=== PATIENT | male | born 1975 | race Two or more races ===

== ENCOUNTER 2019-05-21 03:53 | Emergency (ER) | payer SELFPAY ==
[~2019-05-21] VITALS: Ht 175.3 cm; Wt 108.6 kg
--- NOTE | 2019-05-21 04:05 | NUR ---
PT. STATING HE WOULD LIKE TO LEAVE; AGREEABLE WITH WAITING FOR DR. SHAI ANTHONY.
[2019-05-21 04:29] LABS: MICROSCOPIC NOT IND
[2019-05-21 04:31] LABS: CULTURE INDICATED? NO
--- NOTE | 2019-05-21 05:03 | NUR ---
PT SEEN BY PA. WAITING FOR LAB TO DRAW BLOOD. [facility] 482 ON ARRIVAL. PT IS + ETOH. VSS. CALL LIGHT IN REACH
[2019-05-21 05:26] LABS: PH, VENOUS 7.317 pH (7.320-7.420)
[2019-05-21 05:28] LABS: O2 FLOW RA L/min
[2019-05-21 05:31] LABS: ALBUMIN 3.7 g/dL (3.4-5.0); ANION GAP 9 mmol/L (5-15); CALCIUM 8.6 mg/dL (8.5-10.1); CHLORIDE 104 mmol/L (98-107); CREATININE 0.96 mg/dL (0.7-1.3)
[2019-05-21 05:34] LABS: BASOPHILS # (AUTO) 0.03 x10^3/uL (0-0.1); BASOPHILS % (AUTO) 0 % (0-1); EOSINOPHILS # (AUTO) 0.08 x10^3/uL (0-0.4); EOSINOPHILS % (AUTO) 1 % (1-7); LYMPHOCYTES # (AUTO) 3.37 x10^3/uL (1-3.4); LYMPHOCYTES % (AUTO) 37 % (22-44); MD NO; MEAN CORPUSCULAR HEMOGLOBIN 29.5 pg (27.5-34.5); MEAN CORPUSCULAR HGB CONC 33.5 g/dL (33.2-36.2); MEAN CORPUSCULAR VOLUME 88.1 fL (81-97); MEAN PLATELET VOLUME 8.3 fL (7.4-10.4); MONOCYTES # (AUTO) 0.37 x10^3/uL (0.2-0.8); MONOCYTES % (AUTO) 4 % (2-9); NEUTROPHILS # (AUTO) 5.19 x10^3/uL (1.8-6.8); NEUTROPHILS % (AUTO) 57 % (42-75); PLATELET COUNT 297 x10^3/uL (130-400); RED CELL DISTRIBUTION WIDTH 13.4 % (9.4-14.8)
[2019-05-21] MEDS ORDERED: SODIUM CHLORIDE 0.9% 1,000ML IVBOLUS ONE (06:00)
[2019-05-21 06:04] VITALS: BP 110/68
--- NOTE | 2019-05-21 06:05 | NUR ---
FLUIDS RUNNING. WILL RECHECK [facility] AFTER BOLUS
[2019-05-21 06:08] LABS: ACETONE, SERUM Negative (Negative)
--- NOTE | 2019-05-21 06:33 | NUR ---
pt pulled out piv. Pt want to leave because he has training at 0700. Pa to talk to pt.
[2019-05-21] MEDS ORDERED: INSULIN SINGLE DOSE, ER SQ-INSULIN ONE (06:37)
--- NOTE | 2019-05-21 06:40 | NUR ---
pt medicated with insulin. Pt urged to wait for discharge papers. pt left prior to recieving discharge papers.
[2019-05-21] MEDS ORDERED: INSULIN REGULAR 100 UNITS/ML, 3ML VIAL SQ-INSULIN SCH (07:00)
[2019-05-21] MEDS ORDERED: INSULIN REGULAR 100 UNITS/ML, 3ML VIAL SQ-INSULIN ONE (07:00)
== END 2019-05-21 06:45 | disposition home or self-care (01) ==
LOC: EDSEX 03:53 → ED 06:14
DX: E11.65 Type 2 diabetes mellitus with hyperglycemia (principal); F10.120 Alcohol abuse with intoxication, uncomplicated
CPT/HCPCS: 36415; 80048; 80307; 81003; 82010; 82040; 82803; 82962; 85025; 96360; 96372; 99283; J7030